=== PATIENT | male | born 1995 | race Caucasian/White ===

== ENCOUNTER 2017-04-12 18:22 | Emergency (ER) | payer BC ==
[2017-04-12] MEDS ORDERED: NORMAL SALINE 1,000 ML IV ONE ×4 (18:30→20:23)
[2017-04-12] MEDS ORDERED: LORazepam 2 MG/ML DISP.SYRIN IV ONE (18:41)
[2017-04-12 18:42] LABS: Hematocrit 41.9 % (42.0-52.0); Hemoglobin 13.9 gm/dL (13.5-18.0); Mean Cell Volume 86.9 fl (78-100); Mean Corpuscular Hemoglobin 28.8 pg (27-31); Mean Corpuscular Hgb Conc 33.2 g/dl (32-36); Mean Platelet Volume 9.6 fl (6.0-9.5); Platelet Count 421 K/mm3 (150-450); Red Blood Count 4.82 M/mm3 (4.7-6.0); Red Cell Distribution Width 13.5 % (11.5-14.0); White Blood Count 14.7 K/mm3 (4.0-10.5)
[2017-04-12] MEDS ORDERED: LORazepam 2 MG/ML DISP.SYRIN ONE (18:42)
--- OUTSIDE RECORDS SUMMARY | 2017-04-12 18:45 | XMS REPORT | Continuity of Care Document ---
:1995 Author Organization [facility] ([facility]) Address [address] [place] [address] Phone [phone] Care Team Providers Name Role Phone Unavailable Primary Care Provider Unavailable Source Comments This disclosure is being made pursuant to the Care Everywhere program, applicable federal and state laws, and may not contain all informaitonavailable regarding this patient.[facility] ([facility]) Active Allergies and Adverse Reactions Not on File Current Medications Not on file Active Problems Not on file Social History Tobacco Use Types Packs/Day Years Used Date Never Assessed Plan of Care Health Maintenance Due Date Last Done Comments Hepatitis B Vaccine (1 of 3 - 1995 Primary Series) HPV Vaccine (1 of 3 - Male 3 Dose 2008 Series) Tdap Vaccine 2008 Meningococcal Vaccine (1 of 1) 2013 Lipid Disorder Screening 2015 MMR Vaccine 2015 Td Vaccine 2015 Varicella Vaccine (1 of 2 - Adult - 2015 No Evidence of Immunity) Influenza Vaccine: Seasonal (#1) 06/01/2016 Polio Vaccine Aged Out No longer eligible based on patient's age to complete this topic Results from Last 3 Months Not on file
--- NOTE | 2017-04-12 19:07 | ERNOTE ---
Medical Problem HPI - Narrative Date of Service: 04/12/17 - General Chief Complaint: General Assessment Time Seen by Provider: 04/12/17 18:30 Source: patient, family, RN notes reviewed Exam Limitations: clinical condition - Immun/Allergies/Home Medications Immunizations: IMMUNIZATION HX Immunizations Up to Date Yes History of Influenza Vaccine Yes Hx Pneumococcal Vaccination No Allergies/Adverse Reactions: Allergies sulfamethoxazole [From Bactrim] Allergy (Verified 04/12/17 18:27) trimethoprim [From Bactrim] Allergy (Verified 04/12/17 18:27) Home Medications: HOME MEDICATIONS Levocetirizine Dihydrochloride [Xyzal] 5 mg PO DAILY 07/18/15 [Last Taken Unknown] - History of Present History Narrative: 21 y/o male brought to the ED by his father for severe muscle cramping after working outside in the heat all day. He was working on a roof. He reports being outdoors in the heat most of the day yesterday as well[place]. He admits to consuming some alcohol yesterday but reports it was not excessive. He also sustained a moderate sunburn yesterday. His cramping began late this morning. He reports taking Midol at some point today thinking that it was a muscle relaxant. Date (Duration): 04/12/17 Time (Timing): 10:30 Timing: getting worse Review of Systems - Review of Systems Constitutional: Present: diaphoresis. Absent: recent illness, fever EYE: Absent: blurred vision, double vision ENT: Present: no symptoms reported Respiratory: Absent: shortness of breath, cough Cardiology: Absent: chest pain, palpitations, syncope Gastrointestinal/Abdominal: Present: drinking less. Absent: nausea, vomiting, diarrhea, abdominal pain Genitourinary: Absent: frequency, dysuria, hematuria Musculoskeletal: Present: muscle pain, muscle stiffness Skin: Absent: rash, lesions Neurological: Absent: headache, dizziness/light-headedness, weakness, numbness, tingling Endocrine: Present: no symptoms reported Hematologic/Lymphatic: Present: no symptoms reported Psych: Present: no symptoms reported - Patient's Past Medical History Patient History - Medical: No pertinent hx Patient History - Cardiac/Respiratory: No pertinent hx Patient History - Cancer: No Hx of Cancer Patient History - Surgical Procedures: T & A - Social History Living Situations: parents Does anyone smoke in the home?: No Smoking Status: Never smoker Have you smoked in the past 12 months: No Alcohol Use: occasionally Drug Use: none - Immunizations Immunizations Up to Date: Yes Hx Pneumococcal Vaccination: No History of Influenza Vaccine: Yes Physical Exam - Physical Exam General Appearance: Present: wd/wn, alert, moderate distress Eye Exam: Normal inspection: bilateral Neck: Present: normal inspection, nontender, supple Respiratory: Present: no respiratory distress, normal breath sounds, no accessory muscle use, lungs clear Cardiovascular/Chest: Present: regular rate, rhythm, no murmur, normal peripheral pulses Gastrointestinal/Abdominal: Present: nontender, nondistended, soft Back Exam: Present: normal inspection, no CVA tenderness Extremity Exam: Present: no edema, decreased range of motion - intermittent muscle spasms in extremities Neurological Exam: Present: alert, oriented, normal mood/affect, no motor/ sensory deficits Skin Exam: Present: diaphoresis, other - flushed, various areas of sun burn present ED Progress - Results and Orders Patient's Lab Results:: I have reviewed the patient's lab results. - Vital Signs Patient's Vital Signs:: I have reviewed the patient's vital signs. Vital Signs: Vital Signs 04/12/17 18:25 Temperature 37 C Pulse Rate 97 Respiratory 23 H Rate Blood Pressure 153/83 O2 Sat by Pulse 99 Oximetry - Progress/Reassessment Chief Complaint: General Assessment Progress:: Improved Plan - Plan Plan: Cramping began to improve after 1st liter of IV fluid and Ativan 2 mg IV. Repeat labs show that renal function has returned to normal. Discussed heat exposure and fluid intake at length, as well as avoidance of substances that contribute to dehydration. Total of 4 liters of NS given. Patient reports relief of cramping. Departure - Departure Clinical Impression: Dehydration Disposition: Home Follow Up Needed Condition: Stable Instructions: Dehydration, Adult, [id number] Additional Instructions: Rest tomorrow, avoid excessive heat exposure Drink more water Avoid energy drinks, excessive caffeine, alcohol - all contribute to fluid loss Referrals: Nehemias Horvath MD [Primary Care Provider] -
[2017-04-12 19:11] LABS: BUN/Creatinine Ratio 12.6 (9.0-21.6); Bilirubin, Total 0.5 mg/dL (0.0-1.1); Ca. Corrected For Albumin 8.8 mg/dL (8.4-10.2); Calcium * 9.9 mg/dL (7.9-10.9); Carbon Dioxide 24.7 mmol/L (24-32.6); Potassium 3.7 mmol/L (3.4-4.6); Total Protein 8.7 gm/dL (6.2-8.2)
[2017-04-12 20:47] LABS: Anion Gap 15.9 mmol/L (6.8-13.8); BUN/Creatinine Ratio 16.4 (9.0-21.6); Calcium * 8.2 mg/dL (7.9-10.9); Carbon Dioxide 25.2 mmol/L (24-32.6); Estimated Creat Clear 110.1; Potassium 4.1 mmol/L (3.4-4.6)
[2017-04-12 21:16] VITALS: BP 141/84
== END 2017-04-12 21:28 | disposition home or self-care (01) ==
LOC: ER 18:22
DX: E86.0 Dehydration (principal)